=== PATIENT | male | born 1960 | race African-American/Black ===

== ENCOUNTER 2019-03-17 15:33 | Emergency (ER) | payer BC ==
[2019-03-17 16:19] LABS: Urine Blood NEGATIVE (NEG); Urine Glucose NEGATIVE (NEG); Urine Protein NEGATIVE (NEG); Urine pH 5.5 (5.0-7.0)
[2019-03-17 18:04] LABS: Absolute Lymphocytes (CBC) 1.1 K/uL (0.7-4.9); Basophils % 0.9 % (0-1.3); Hematocrit 41.2 % (39.6-49.0); Lymphocytes % 7.7 % (15.3-44.8); MPV 10.2 fL (7.6-11.3); RBC Red Blood Cell Count 5.22 M/uL (4.33-5.43)
[2019-03-17 18:32] LABS: Albumin 3.9 g/dL (3.4-5.0); Bilirubin Total 0.7 mg/dL (0.2-1.0); Protein, Total 8.1 g/dL (6.4-8.2)
[2019-03-17] MEDS ORDERED: CIPROFLOXACIN HCL 500 MG TAB ONE (18:59)
--- NOTE | 2019-03-17 19:07 | ER ---
Nurse's Notes [facility] Name: Gregorio Quinones Age: 58 yrs Sex: Male : 1960 Arrival Date: 03/17/2019 Time: 15:37 Bed 16 Private MD: Diagnosis: Acute prostatitis;Urinary Retention Presentation: 03/17 15:48 Presenting complaint: Difficulty urinating and lower abdominal pain x 2 days. hb Transition of care: patient was not received from another setting of care. Onset of symptoms was March 16, 2019. Risk Assessment: Do you want to hurt yourself or someone else? Patient reports no desire to harm self or others. Initial Sepsis Screen: Does the patient meet any 2 criteria? No. Patient's initial sepsis screen is negative. Does the patient have a suspected source of infection? No. Patient's initial sepsis screen is negative. Care prior to arrival: None. 15:48 Method Of Arrival: Ambulatory hb 15:48 Acuity: AGNES 3 hb Historical: - Allergies: 15:49 No Known Allergies; hb - Home Meds: 15:49 None [Active]; hb - PMHx: 15:49 None; hb - PSHx: 15:49 None; hb - Immunization history:: Adult Immunizations up to date. - Social history:: Smoking status: Patient/guardian denies using tobacco. - Ebola Screening: : No symptoms or risks identified at this time. Screenin:30 Abuse screen: Denies threats or abuse. Nutritional screening: No deficits noted. rb1 Tuberculosis screening: No symptoms or risk factors identified. Fall Risk None identified. Assessment: 16:30 General: Appears uncomfortable, Behavior is calm, cooperative, Denies fever. Pain: rb1 Complains of pain in abdomen Pain currently is 10 out of 10 on a pain scale. Pain began 1 day ago. Neuro: Level of Consciousness is awake, alert, obeys commands, Oriented to person, place, time, situation. Cardiovascular: Capillary refill < 3 seconds is brisk in bilateral fingers. Respiratory: Airway is patent Respiratory effort is even, unlabored, Respiratory pattern is regular, symmetrical. GI: No signs and/or symptoms were reported involving the gastrointestinal system. : Reports inability to void, since yesterday. Derm: Skin is dry, Skin is normal, Skin temperature is warm. Derm: Musculoskeletal: Range of motion: intact in all extremities. 17:30 Reassessment: Patient appears in no apparent distress at this time. Patient and/or rb1 family updated on plan of care and expected duration. Pain level reassessed. Patient is alert, oriented x 3, equal unlabored respirations, skin warm/dry/pink. 18:45 Reassessment: Patient appears in no apparent distress at this time. Patient and/or rb1 family updated on plan of care and expected duration. Pain level reassessed. Patient is alert, oriented x 3, equal unlabored respirations, skin warm/dry/pink. Pain 5/10. Vital Signs: 15:48 BP 160 / 97; Pulse 105; Resp 16; Temp 98.2; Pulse Ox 99% on R/A; Weight 95.25 kg; hb Height 5 ft. 8 in. (172.72 cm); Pain 10/10; 16:45 BP 152 / 94; Pulse 89; Resp 16; Temp 98.1(O); Pulse Ox 96% on R/A; rb1 18:55 BP 143 / 100; Pulse 97; Resp 17; Pulse Ox 95% on R/A; Pain 5/10; rb1 15:48 Body Mass Index 31.93 (95.25 kg, 172.72 cm) hb ED Course: 15:37 Patient arrived in ED. mr 15:48 Triage completed. hb 15:48 Arm band placed on. hb 16:30 Jed Wilkerson PA is PHCP. [facility] 16:30 Larry Flores MD is Attending Physician. [facility] 16:30 Patient has correct armband on for positive identification. Placed in gown. Bed in low rb1 position. Call light in reach. Side rails up X 1. Pulse ox on. NIBP on. Warm blanket given. 16:39 Ambar Carpio, RN is Primary Nurse. rb1 17:00 Jessica cath inserted, using sterile technique, 16 Fr., by me, balloon inflated, to jb1 gravity drainage, clamped. 600 MLS drained before clamping jessica. after unclamping jessica 600 MLS more drained. 17:45 Initial lab(s) drawn, by me, sent to lab. jb1 18:07 Inserted saline lock: 22 gauge in left antecubital area, using aseptic technique. jb1 19:00 Report given to PANCHO Vuong. rb1 19:05 Nancy Menendez MD is Referral Physician. [facility] 19:32 No provider procedures requiring assistance completed. IV discontinued, intact, rb1 bleeding controlled, No redness/swelling at site. Pressure dressing applied. Administered Medications: 19:16 Drug: Cipro 500 mg Route: PO; mg2 19:30 Follow up: Response: Medication administered at discharge. [facility] Outcome: 19:06 Discharge ordered by MD. [facility] 19:32 Discharged to home ambulatory, with family. [facility] 19:32 Condition: stable 19:32 Discharge instructions given to patient, Instructed on discharge instructions, follow up and referral plans. medication usage, Demonstrated understanding of instructions, follow-up care, medications, Prescriptions given X 2. 19:33 Patient left the ED. rb1 Signatures: Gamaliel Méndez jb1 Jed Wilkerson PA PA [facility] Concetta Roman mr Carpio, Ambar, RN RN rb1 Chio Hamilton RN RN Joe Fabian RN RN mg2 Corrections: (The following items were deleted from the chart) 17:12 17:10 Urine 600, (Jessica), Output Total 600. jb1 jb1 17:12 17:00 Jessica cath inserted, using sterile technique, 16 Fr., by me, balloon inflated, to jb1 gravity drainage, clamped. rb1 17:13 17:00 Jessica cath inserted, using sterile technique, 16 Fr., by me, balloon inflated, to jb1 gravity drainage, clamped. 600 MLS drained before clamping jessica. jb1
--- NOTE | 2019-03-17 19:08 | EDPHYS ---
Physician Documentation [facility] Name: rGegorio Quinones Age: 58 yrs Sex: Male : 1960 Arrival Date: 03/17/2019 Time: 15:37 Bed 16 Private MD: ED Physician Larry Flores HPI: 03/17 16:43 This 58 yrs old Black Male presents to ER via Ambulatory with complaints of Urinary jmm Problem. 16:43 The patient presents with urinary symptoms, dysuria. Onset: The symptoms/episode jmm began/occurred gradually, 1 month(s) ago. Modifying factors: The symptoms are alleviated by nothing, the symptoms are aggravated by nothing. This is a 58 year old male with no chronic medical conditions that presents to the ED with complaints of difficulty with urinating for the past month. Patient states he has been unable to urinate today. Denies fever, denies vomiting. . Historical: - Allergies: 15:49 No Known Allergies; hb - Home Meds: 15:49 None [Active]; hb - PMHx: 15:49 None; hb - PSHx: 15:49 None; hb - Immunization history:: Adult Immunizations up to date. - Social history:: Smoking status: Patient/guardian denies using tobacco. - Ebola Screening: : No symptoms or risks identified at this time. ROS: 16:43 Constitutional: Negative for fever, chills, and weight loss, Cardiovascular: Negative jmm for chest pain, palpitations, and edema, Respiratory: Negative for shortness of breath, cough, wheezing, and pleuritic chest pain. 16:43 Abdomen/GI: Positive for abdominal pain. 16:43 : Positive for urinary symptoms. 16:43 All other systems are negative. Exam: 16:43 Constitutional: This is a well developed, well nourished patient who is awake, alert, jmm and in no acute distress. Head/Face: atraumatic. Eyes: EOMI, no conjunctival erythema appreciated ENT: Moist Mucus Membranes Neck: Trachea midline, Supple Chest/axilla: Normal chest wall appearance and motion. Cardiovascular: Regular rate and rhythm. No edema appreciated Respiratory: Normal respirations, no respiratory distress appreciated Abdomen/GI: Non distended, soft Back: Normal ROM Skin: General appearance color normal MS/ Extremity: Moves all extremities, no obvious deformities appreciated, no edema noted to the lower extremities Neuro: Awake and alert, normal gait Psych: Behavior is normal, Mood is normal, Patient is cooperative and pleasant Vital Signs: 15:48 BP 160 / 97; Pulse 105; Resp 16; Temp 98.2; Pulse Ox 99% on R/A; Weight 95.25 kg; hb Height 5 ft. 8 in. (172.72 cm); Pain 10/10; 16:45 BP 152 / 94; Pulse 89; Resp 16; Temp 98.1(O); Pulse Ox 96% on R/A; rb1 18:55 BP 143 / 100; Pulse 97; Resp 17; Pulse Ox 95% on R/A; Pain 5/10; rb1 15:48 Body Mass Index 31.93 (95.25 kg, 172.72 cm) hb MDM: 16:37 Patient medically screened. pm1 19:03 Data reviewed: vital signs, nurses notes. Counseling: I had a detailed discussion with [facility] the patient and/or guardian regarding: the historical points, exam findings, and any diagnostic results supporting the discharge/admit diagnosis, lab results, the need for outpatient follow up, to return to the emergency department if symptoms worsen or persist or if there are any questions or concerns that arise at home. ED course: Patient has no abdominal pain on palpation. patient will be treated for prostatitis. I discussed the patient with Dr. Menendez whom recommended kolby cid foley. Will follow up on Saturday. patient given strict return precautions. patient understood and agrees with the plan of care. . 03/17 15:55 Order name: Urine Dipstick--Ancillary (enter results) [facility] 03/17 16:20 Order name: Urine Dipstick-Ancillary; Complete Time: 16:37 [facility] 03/17 17:26 Order name: CBC with Diff [facility] 03/17 17:26 Order name: CMP; Complete Time: 18:39 [facility] 03/17 18:42 Order name: Urine Culture [facility] 03/17 16:37 Order name: Bladder Scanner; Complete Time: 16:47 [facility] 03/17 16:37 Order name: [place]; Complete Time: 16:59 pm 03/17 17:26 Order name: Saline Lock; Complete Time: 18:08 [facility] Administered Medications: 19:16 Drug: Cipro 500 mg Route: PO; mg2 19:30 Follow up: Response: Medication administered at discharge. rb1 Disposition: 21:50 Co-signature as Attending Physician, Larry Flores MD Available for consultation at ps1 all times . Disposition: 03/17/19 19:06 Discharged to Home. Impression: Acute prostatitis, Urinary Retention. - Condition is Stable. - Discharge Instructions: [place] Catheter Care, Adult, Prostatitis, How to Take a Sitz Bath, Acute Urinary Retention, Male. - Prescriptions for Tylenol- Codeine #3 300-30 mg Oral Tablet - take 1 tablet by ORAL route every 6 hours As needed; 20 tablet. Cipro 500 mg Oral Tablet - take 1 tablet by ORAL route every 12 hours for 14 days; 28 tablet. - Medication Reconciliation Form, Thank You Letter, Antibiotic Education, Prescription Opioid Use form. - Follow up: Nancy Menendez MD; When: 03/20/2019. Signatures: Dispatcher [employer] EDMS Jed Wilkerson PA PA jmm Barber, Rebecca, RN RN rb1 Kendrick Navarrete HOSPICE FELLOW HOSPICE FELLOW pm1 Chio Hamilton RN RN hb Larry Flores MD MD ps1 Joe Fabian RN RN mg2 Corrections: (The following items were deleted from the chart) 19:33 19:06 03/17/2019 19:06 Discharged to Home. Impression: Acute prostatitis; Urinary rb1 Retention. Condition is Stable. Forms are Medication Reconciliation Form, Thank You Letter, Antibiotic Education, Prescription Opioid Use. Follow up: Nancy Menendez; When: 03/20/2019. gareth
[2019-03-17 20:54] LABS: Platelet Estimate ADEQ; Urine White Blood Cell Casts OK
[2019-03-17 20:55] LABS: Blood Morphology Comment NOTED (NOT SEEN)
== END 2019-03-17 19:33 | disposition home or self-care (01) ==
LOC: ER 15:33
DX: N41.0 Acute prostatitis (principal); R33.9 Retention of urine, unspecified
CPT/HCPCS: 36415; 51702; 80053; 81003; 85025; 87086; 87088; 99284

== ENCOUNTER 2023-11-02 18:58 | Emergency (ER) | payer BC ==
[2023-11-02] MEDS ORDERED: TDAP (DIPHTH,PERTUSS(ACELL),TET VAC) 0.5 ML VIAL IMVAC ONE (19:23)
[2023-11-02] MEDS ORDERED: LIDOCAINE 1% 20 ML MDV ONE (19:23)
--- NOTE | 2023-11-02 20:04 | EDPHYS ---
Physician Documentation [facility] Name: Gregorio Quinones Age: 63 yrs Sex: Male : 1960 Arrival Date: 11/02/2023 Time: 18:58 Bed 12 Private MD: ED Physician Mike Daniel HPI: 11/01 20:03 This 63 yrs old Black Male presents to ER via Ambulatory with complaints of Facial sp4 Injury - facial cuts. 11/02 19:43 Patient has sustained an injury just inferior to nose structures at the philtrum level, sp4 from pliers flying at work. Patient states his coworker threw pliers and him which he has failed to catch and it has caused laceration of the philtrum causing small laceration. Historical: - Allergies: 11/01 19:13 No Known Allergies; vc1 - PMHx: 19:13 None; vc1 - PSHx: 19:13 prostate removed; vc1 - Immunization history:: Client reports receiving the 2nd dose of the Covid vaccine, Last tetanus immunization: unknown, Flu vaccine is not up to date. - Infectious Disease History:: Denies. - Social history:: Smoking status: Patient denies any tobacco usage or history of. - Family history:: not pertinent. ROS: 11/02 19:43 Constitutional: Negative for fever, chills, and weight loss, positive nasal abrasion, sp4 positive laceration to the philtrum All other systems are negative, Exam: 19:43 Constitutional: This is a well developed, well nourished patient who is awake, alert, sp4 and in no acute distress. Head/Face: Normocephalic, positive nasal abrasion, positive laceration to the philtrum which is oriented vertically measuring 1-1/2 cm. Eyes: Pupils equal round and reactive to light, extra-ocular motions intact. Lids and lashes normal. Conjunctiva and sclera are not injected. Cornea within normal limits. Periorbital areas with no swelling, redness, or edema. ENT: Nares patent. No nasal discharge, no septal abnormalities noted. Tympanic membranes are normal and external auditory canals are clear. Oropharynx with no redness, swelling, or masses, exudates, or evidence of obstruction, uvula midline. Mucous membranes moist. Neck: Trachea midline, no thyromegaly or masses palpated, and no cervical lymphadenopathy. Supple, full range of motion without nuchal rigidity, or vertebral point tenderness. Chest/axilla: Normal chest wall appearance and motion. Nontender with no deformity. No lesions are appreciated. Cardiovascular: Regular rate and rhythm with a normal S1 and S2. No gallops, murmurs, or rubs. Normal PMI, no JVD. No pulse deficits. Respiratory: Lungs have equal breath sounds bilaterally, clear to auscultation and percussion. No rales, rhonchi or wheezes noted. No increased work of breathing, no retractions or nasal flaring. Abdomen/GI: Soft, with normal bowel sounds. No distension or tympany. No guarding or rebound. No evidence of tenderness throughout. Back: No spinal tenderness. No costovertebral tenderness. Skin: Warm, dry with normal turgor. Normal color with no rashes, no lesions, and no evidence of cellulitis. MS/ Extremity: Pulses equal, no cyanosis. Neurovascular intact. Full, normal range of motion. Neuro: Awake and alert, GCS 15, oriented to person, place, time, and situation. Cranial nerves II-XII grossly intact. Motor strength 5/5 in all extremities. Sensory grossly intact. Psych: Awake, alert, with orientation to person, place and time. Behavior, mood, and affect are within normal limits Vital Signs: 11/01 19:10 Pulse 88; Resp 15; Temp 97.4; Pulse Ox 98% ; Weight 96.62 kg; Height 5 ft. 10 in. ; vc1 Pain 0/10; 19:13 BP 151 / 96; vc1 19:42 BP 149 / 97; Pulse 85; Resp 17 S; Pulse Ox 98% on R/A; ha1 19:10 Body Mass Index 30.56 (96.62 kg, 177.8 cm) vc1 19:10 Pain Scale: Adult vc1 Navarre Coma Score: 11/02 19:43 Eye Response: spontaneous(4). Motor Response: obeys commands(6). Verbal Response: sp4 oriented(5). Total: 15. 19:43 Eye Response: spontaneous(4). Motor Response: obeys commands(6). Verbal Response: sp4 oriented(5). Total: 15. Laceration: 11/01 20:04 Wound Repair of 1.5cm ( 0.6in ) subcutaneous laceration to philtrum. Linear shaped.. sp4 Distal neuro/vascular/tendon intact. Anesthesia: Wound infiltrated with 5 mls of 1% lidocaine. Wound prep: Moderate cleansing by me, Copious irrigation. Skin closed with 5 6-0 Prolene using interrupted sutures and sterile technique. Dressed with left to air . Patient tolerated well. MDM: 19:07 Patient medically screened. sp4 11/02 19:43 Differential diagnosis: Contusion of Hematoma on Laceration of Concussion. Data sp4 reviewed: vital signs, nurses notes. ED course: Laceration repaired. Patient stable for discharge home. 11/01 19:12 Order name: Gloves, Sterile; Complete Time: :29 sp4 11/01 19:12 Order name: Setup Suture Tray; Complete Time: :29 sp4 Administered Medications: 11/01 19:29 Drug: Boostrix Tdap IM 0.5 ml IM once; as a single dose Route: IM; Site: left deltoid; ha1 20:25 Follow up: Response: No adverse reaction ha1 20:00 Drug: Lidocaine Infiltration (1 %) 20 ml 20 ml Infiltration once; to bedside {Note: ha1 administered by Dr. Daniel .} Volume: 20 ml; Route: Infiltration; 20:25 Follow up: Response: No adverse reaction ha1 Disposition Summary: 11/02/23 20:03 Discharge Ordered Problem: new sp4 Symptoms: have improved sp4 Condition: Stable sp4 Diagnosis - Acute facial laceration over the philtrum, acute nasal abrasion sp4 Followup: sp4 - With: Private Physician - When: 10 - 14 days - Reason: Recheck today's complaints Discharge Instructions: - Discharge Summary Sheet sp4 - Facial Laceration, [id number] sp4 Forms: - Patient Portal Instructions sp4 Signatures: Denise Warren RN RN vc1 Mandy Cordon RN RN Mike Nogueira MD MD sp4 Corrections: (The following items were deleted from the chart) 19:14 19:13 PSHx: None; vc1 vc1
--- NOTE | 2023-11-02 20:04 | ER ---
Nurse's Notes [facility] Name: Gregorio Quinones Age: 63 yrs Sex: Male : 1960 Arrival Date: 11/02/2023 Time: 18:58 Bed 12 Private MD: Diagnosis: Acute facial laceration over the philtrum, acute nasal abrasion Presentation: 11/01 19:10 Chief complaint: Patient states: face laceration. Coronavirus screen: Client denies vc1 travel out of the [place] in the last 14 days. At this time, the client does not indicate any symptoms associated with coronavirus-19. Ebola Screen: Patient negative for fever greater than or equal to 101.5 degrees Fahrenheit, and additional compatible Ebola Virus Disease symptoms Patient denies exposure to infectious person. Patient denies travel to an Ebola-affected area in the 21 days before illness onset. No symptoms or risks identified at this time. Initial Sepsis Screen: Does the patient meet any 2 criteria? No. Patient's initial sepsis screen is negative. Does the patient have a suspected source of infection? No. Patient's initial sepsis screen is negative. Risk Assessment: Do you want to hurt yourself or someone else? Patient reports no desire to harm self or others. Onset of symptoms was November 02, 2023. 19:10 Method Of Arrival: Ambulatory vc1 19:10 Acuity: AGNES 3 vc1 Triage Assessment: 19:14 General: Appears in no apparent distress. comfortable, Behavior is calm, cooperative, vc1 appropriate for age. Pain: Denies pain. EENT: No deficits noted. No signs and/or symptoms were reported regarding the EENT system. Neuro: Level of Consciousness is awake, alert, obeys commands, Oriented to person, place, time, situation, Appropriate for age. Respiratory: Airway is patent Respiratory effort is even, unlabored, Respiratory pattern is regular, symmetrical. Derm: Wound noted face. Historical: - Allergies: 19:13 No Known Allergies; vc1 - PMHx: 19:13 None; vc1 - PSHx: 19:13 prostate removed; vc1 - Immunization history:: Client reports receiving the 2nd dose of the Covid vaccine, Last tetanus immunization: unknown, Flu vaccine is not up to date. - Infectious Disease History:: Denies. - Social history:: Smoking status: Patient denies any tobacco usage or history of. - Family history:: not pertinent. Screenin:30 [facility] ED Fall Risk Assessment (Adult) History of falling in the last 3 months, ha1 including since admission No falls in past 3 months (0 pts) Confusion or Disorientation No (0 pts) Intoxicated or Sedated No (0 pts) Impaired Gait No (0 pts) Mobility Assist Device Used No (0 pt) Altered Elimination No (0 pt) Score/Fall Risk Level 0 - 2 = Low Risk Oriented to surroundings, Maintained a safe environment, Educated pt \T\ family on fall prevention, incl call for assistance when getting out of bed, Hourly rounding (assess needs \T\ fall precautionary measures) done. Abuse screen: Denies threats or abuse. Denies injuries from another. Nutritional screening: No deficits noted. Tuberculosis screening: No symptoms or risk factors identified. Assessment: 19:30 General: Appears comfortable, Behavior is calm, cooperative. Pain: Complains of pain in ha1 philtrum Pain does not radiate. Pain currently is 2 out of 10 on a pain scale. Quality of pain is described as burning. Neuro: Level of Consciousness is awake, alert, obeys commands, Oriented to person, place, time, situation. Cardiovascular: Patient's skin is warm and dry. Respiratory: Airway is patent Respiratory effort is even, unlabored, Respiratory pattern is regular, symmetrical. GI: No signs and/or symptoms were reported involving the gastrointestinal system. Musculoskeletal: No signs and/or symptoms reported regarding the musculoskeletal system. Circulation, motion, and sensation intact. Injury Description: Laceration sustained to philtrum is 0.5 to 2.5 cm long, not bleeding, no active bleeding noted at this time. 20:26 Reassessment: Patient and/or family updated on plan of care and expected duration. Pain ha1 level reassessed. Patient is alert, oriented x 3, equal unlabored respirations, skin warm/dry/pink. Patient states feeling better. Patient states symptoms have improved. Vital Signs: 19:10 Pulse 88; Resp 15; Temp 97.4; Pulse Ox 98% ; Weight 96.62 kg; Height 5 ft. 10 in. ; vc1 Pain 0/10; 19:13 BP 151 / 96; vc1 19:42 BP 149 / 97; Pulse 85; Resp 17 S; Pulse Ox 98% on R/A; ha1 19:10 Body Mass Index 30.56 (96.62 kg, 177.8 cm) vc1 19:10 Pain Scale: Adult vc1 Delmar Coma Score: 11/02 19:43 Eye Response: spontaneous(4). Motor Response: obeys commands(6). Verbal Response: sp4 oriented(5). Total: 15. 19:43 Eye Response: spontaneous(4). Motor Response: obeys commands(6). Verbal Response: sp4 oriented(5). Total: 15. ED Course: 11/01 19:04 Patient arrived in ED. ra3 19:05 Miek Daniel MD is Attending Physician. sp4 19:13 Triage completed. vc1 19:14 Arm band placed on right wrist. vc1 19:20 Mandy Cordon RN is Primary Nurse. ha1 19:20 Patient has correct armband on for positive identification. Bed in low position. Call ha1 light in reach. Side rails up X 1. 20:26 No provider procedures requiring assistance completed. Patient did not have IV access ha1 during this emergency room visit. 20:27 Provided Education on: following up for suture removal and wound care . ha1 Administered Medications: 19:29 Drug: Boostrix Tdap IM 0.5 ml IM once; as a single dose Route: IM; Site: left deltoid; ha1 20:25 Follow up: Response: No adverse reaction ha1 20:00 Drug: Lidocaine Infiltration (1 %) 20 ml 20 ml Infiltration once; to bedside {Note: ha1 administered by Dr. Daniel .} Volume: 20 ml; Route: Infiltration; 20:25 Follow up: Response: No adverse reaction ha1 Medication: 20:27 Vaccine Information Statement (VIS) provided today. Questions and/or concerns ha1 addressed. VIS edition date: November 02, 2019. Outcome: 20:03 Discharge ordered by . sp4 20:26 Discharged to home ambulatory, ha1 20:26 Condition: stable 20:26 Discharge instructions given to patient, Instructed on discharge instructions, follow up and referral plans. Demonstrated understanding of instructions, follow-up care, 20:28 Patient left the ED. ha1 Signatures: Denise Warren RN RN vc1 Mandy Cordon RN RN ha1 Potepalov, Sergey, MD MD sp4 Gwendolyn Bui ra3 Corrections: (The following items were deleted from the chart) 19:14 19:13 PSHx: None; vc1 vc1
[2023-11-02 21:09] VITALS: BP 149/97; TEMP 97.4; O2SAT 98
== END 2023-11-02 20:28 | disposition home or self-care (01) ==
LOC: ER 18:58
PROC: 0HQ1XZZ Repair Face Skin, External Approach (ICD-10-PCS; principal; 2023-11-02)
DX: S01.511A Laceration without foreign body of lip, initial encounter (principal)
CPT/HCPCS: 96372; 99284; 12011; J2001

== ENCOUNTER 2023-11-16 19:13 | Emergency (ER) | payer BC ==
--- NOTE | 2023-11-16 20:09 | EDPHYS ---
Physician Documentation [facility] Name: Gregorio Quinones Age: 63 yrs Sex: Male : 1960 Arrival Date: 11/16/2023 Time: 19:13 Bed IW10 Private MD: ED Physician Jarad Larson HPI: 11/15 20:06 This 63 yrs old Black Male presents to ER via Unassigned with complaints of Suture cp Removal. 20:06 The patient has sutures on the above upper lip. Previous treatment: The patient was cp initially treated 14 day(s) ago, the care was rendered at [facility], Treatment type: The patient's original treatment included sutures. Sutures/christian progress: The patient has no c/o's. The wound is well-healing with no redness, swelling, discharge, or dehiscence reported. ROS: 20:06 All other systems are negative, cp Exam: 20:06 Constitutional: The patient appears in no acute distress, alert, awake, comfortable, cp non-toxic, well developed, well nourished, 20:06 Head/face: Noted is [address] in area above upper lip, laceration well-healed with no dehiscence, no erythema, no swelling noted. Procedures: 20:07 Suture/Staple removal: Removed 1 sutures, from above upper lip, site appears well cp healed, Patient tolerated well. MDM: 20:08 Patient medically screened. cp 20:08 Data reviewed: vital signs, nurses notes, and as a result, I will discharge patient. cp 20:08 Counseling: I had a detailed discussion with the patient and/or guardian regarding the cp historical points, exam findings, and any diagnostic results supporting the discharge/admit diagnosis, to return to the emergency department if symptoms worsen or persist or if there are any questions or concerns that arise at home. Administered Medications: No medications were administered Disposition: 11/16 00:10 I was immediately available on-site in the Emergency Department for consultation in the ms3 care of the patient. Disposition Summary: 11/16/23 20:08 Discharge Ordered Notes: Location: Home cp Problem: new cp Symptoms: have improved cp Condition: Stable cp Diagnosis - Encounter for removal of sutures cp Followup: cp - With: Private Physician - When: 2 - 3 days - Reason: Worsening of condition Discharge Instructions: - Discharge Summary Sheet cp - Sutures, Christian, or Adhesive Wound Closure cp - Suture Removal, Care After cp Forms: - Medication Reconciliation Form cp - Antibiotic Education cp - Prescription Opioid Use cp - Patient Portal Instructions cp - Leadership Thank You Letter cp Signatures: Desean Vitale PA PA cp Sims, Marcus, DO DO ms3 Corrections: (The following items were deleted from the chart) 11/15 20:07 20:06 Previous treatment: The patient was initially treated 10 day(s) ago, the care was cp rendered at [facility], Treatment type: The patient's original treatment included sutures, cp
--- NOTE | 2023-11-16 20:44 | ER ---
Nurse's Notes [facility] Name: Gregorio Quinones Age: 63 yrs Sex: Male : 1960 Arrival Date: 11/16/2023 Time: 19:13 Bed IW10 Private MD: Diagnosis: Encounter for removal of sutures ED Course: 11/15 19:15 Patient arrived in ED. rg4 19:16 Desean Vitale PA is PHCP. cp 19:16 Jarad Larson DO is Attending Physician. cp 19:50 Patient sutures removed. Patient's name was called from ER lobby. No response. vc1 Administered Medications: No medications were administered Outcome: 20:08 Discharge ordered by MD. cp 20:43 No charge visit due to suture removal. vc1 20:43 Patient left the ED. vc1 Signatures: Desean Vitale PA PA cp Garcia, Rubi rg4 Denise Warren RN RN vc1 Corrections: (The following items were deleted from the chart) 20:43 20:36 Eloped from waiting room, after seeing physician Time discovered patient gone: vc1 November 16, 2023 at 19:50 vc1
== END 2023-11-16 20:43 | disposition home or self-care (01) ==
LOC: ER 19:13
DX: Z48.02 Encounter for removal of sutures (principal)